=== PATIENT | female | born 1955 | race Two or more races ===

== ENCOUNTER 2021-08-25 07:28 | Inpatient (IN) | payer MEDICARE, OTHER ==
[~2021-08-25] VITALS: Ht 167.6 cm; Wt 72.1 kg
--- NOTE | 2021-08-25 07:30 | NUR ---
TO ER BED 11, BIBRA 77 FROM HOME C/O MORE ALTERED AND WEAK THAN USUAL. PER EMS UNKNOWN LKW. [id number], SLEEPY, BREATHING EVEN AND NON LABORED, CONNECTED TO MONITOR
[2021-08-25] MEDS ORDERED: SUMA50TA17 PO (07:53)
[2021-08-25] MEDS ORDERED: CYCL10TA9 PO (07:53)
[2021-08-25] MEDS ORDERED: DIPH-1062 PO (07:53)
[2021-08-25] MEDS ORDERED: ESCI10TA PO (07:53)
[2021-08-25] MEDS ORDERED: ZOLP10TA2 PO (07:53)
[2021-08-25] MEDS ORDERED: HYDR-3980 PO (07:53)
[2021-08-25] MEDS ORDERED: SENN-261 PO (07:53)
[2021-08-25] MEDS ORDERED: NAPR-1009 PO (07:53)
[2021-08-25] MEDS ORDERED: DOCU250C14 PO (07:53)
[2021-08-25] MEDS ORDERED: ELVI1TAB3 PO (07:53)
--- NOTE | 2021-08-25 07:54 | NUR ---
COVID SWAB DONE AND SENT TO LAB
--- NOTE | 2021-08-25 07:55 | NUR ---
URINE COLLECTED AND SENT TO LAB
--- NOTE | 2021-08-25 08:05 | NUR ---
AIRCRAFT CLEANING SUPERVISOR AT BED SIDE
[2021-08-25 08:08] LABS: BASOPHILS % (AUTO) 0.2 % (0.0-2.0); EOSINOPHILS % (AUTO) 0.1 % (0.0-6.0); HEMATOCRIT 40 % (33-45); LYMPHOCYTES # (AUTO) 2.5 K/uL (0.8-4.8); LYMPHOCYTES % (AUTO) 15.3 % (20.0-44.0); MEAN CORPUSCULAR HGB CONC 33 g/dl (31.0-36.0); MEAN CORPUSCULAR VOLUME 91 fL (82-100); MONOCYTES # (AUTO) 0.8 K/uL (0.1-1.30); MONOCYTES % (AUTO) 4.9 % (2.0-12.0); NEUTROPHILS # (AUTO) 12.8 K/uL (1.8-8.9); NEUTROPHILS % (AUTO) 79.5 % (43.0-81.0); PLATELET COUNT (AUTO) 196 K/uL (150-450); RED BLOOD CELL COUNT(AUTO) 4.37 MIL/uL (4.0-5.2); WHITE BLOOD COUNT (AUTO) 16.1 K/uL (4.3-11.0)
[2021-08-25] MEDS ORDERED: GABA-532 PO (08:08)
[2021-08-25] MEDS ORDERED: METH-647 PO (08:08)
[2021-08-25] MEDS ORDERED: ERGO500093 PO (08:08)
--- NOTE | 2021-08-25 08:08 | NUR ---
MOVE SHEET SUBMITTED AND CALLED FOR TELE BED.
[2021-08-25 08:17] LABS: BILIRUBIN,URINE NEGATIVE (NEGATIVE); COLOR,URINE YELLOW (YELLOW); LEUKOCYTE ESTERASE ,URINE NEGATIVE (NEGATIVE); NITRITE, URINE NEGATIVE (NEGATIVE); PROTEIN,URINE NEGATIVE (NEGATIVE); UGLUCOSE NEGATIVE (NEGATIVE); UROBILINOGEN,URINE 0.2 EU/dL (0.2)
[2021-08-25 08:24] LABS: SERUM AMMONIA 24 umol/L (11-32)
[2021-08-25 08:25] LABS: CARBON DIOXIDE 24 mmol/L (21-32); CHLORIDE 106 mmol/L (98-107); CREATININE 0.7 mg/dL (0.6-1.3); GLUCOSE 147 mg/dL (74-106); POTASSIUM 3.3 mmol/L (3.5-5.1); SODIUM SERUM 139 mmol/L (136-145); UREA NITROGEN, BLOOD 24 mg/dL (7-18)
[2021-08-25 08:31] LABS: ALANINE AMINOTRANSFERASE 38 U/L (12-78); ALBUMIN 3.1 g/dL (3.4-5.0); ALKALINE PHOSPHATASE 86 U/L (46-116); ASPARTATE AMINOTRANSFERASE 65 U/L (15-37); BILIRUBIN,DIRECT 0.1 mg/dL (0.0-0.2); BILIRUBIN,TOTAL 0.3 mg/dL (0.2-1.0); TOTAL PROTEIN, SERUM 7.5 g/dL (6.4-8.2)
[2021-08-25 08:45] LABS: ACETAMINOPHEN 0 ug/ml (10-30); ALCOHOL, BLOOD < 3 mg/dL (0-0)
[2021-08-25 08:58] LABS: THYROID STIMULATING HORMONE 1.422 uIU/mL (0.358-3.74)
[2021-08-25 09:00] LABS: BACTERIA,URINE Rare /HPF (None Seen); RBC,URINE 0-2 /HPF (0-2); SQUAMOUS EPITHELIAL CELL,UR Few /HPF (None Seen); WBC,URINE 0-2 /HPF (0-3)
[2021-08-25] MEDS ORDERED: IV NS 0.9% 1,000 ML BAG IV ONE (09:30)
[2021-08-25] MEDS ORDERED: MAG HYDROX/AL HYDROX/SIMETH 30 ML UDC PO PRN (11:30)
[2021-08-25] MEDS ORDERED: SENNOSIDES 8.6 MG TABLET PO PRN (11:30)
[2021-08-25] MEDS ORDERED: Z GUARD REMEDY 4 OZ OINT TP PRN (11:30)
[2021-08-25] MEDS ORDERED: DOCUSATE SODIUM 250 MG CAPSULE PO PRN (11:30)
[2021-08-25] MEDS ORDERED: MAGNESIUM HYDROXIDE 30 ML UDC PO PRN (11:30)
[2021-08-25] MEDS ORDERED: IV NS 0.9% 1,000 ML IV PRN (11:30)
[2021-08-25] MEDS ORDERED: ACETAMINOPHEN 325 MG TABLET PO PRN (11:30)
[2021-08-25] MEDS ORDERED: ONDANSETRON HCL/PF 4 MG/2 ML VIAL IVP PRN (11:30)
--- NOTE | 2021-08-25 12:48 | NUR ---
BED 325-2
--- NOTE | 2021-08-25 12:54 | NUR ---
report given to bob lao for silvia
[2021-08-25] MEDS ORDERED: SUMATRIPTAN SUCCINATE 25 MG TABLET PO PRN (13:00)
[2021-08-25] MEDS: ESCITALOPRAM OXALATE (10 MG) 10 MG TABLET PO SCH ×2 (13:00→17:11)
--- NOTE | 2021-08-25 13:19 | NUR ---
TRANSFERRED TO BED 325 IN STABLE CONDITION
--- NOTE | 2021-08-25 13:25 | NUR ---
RN NOTES PATIENT ARRIVED TO UNIT AT ROOM 325-2, ACCOMPANIED BY 2 ER NURSES. PATIENT IS DOZING INTERMITTENTLY, ABLE TO BE AWAKENED, A/O X1, VERBALLY RESPONSIVE BUT NOTED W/ SOME DIFFICULTY MAKING HERSELF KNOWN. UNDERSTANDS EGYPTIAN AND [place]ELANDIC. TRANSFERRED TO BED AND ATTACHED TO CHANNEL DIRECTOR.
--- NOTE | 2021-08-25 15:28 | NUR ---
RN NOTES LAC #18 G STARTED.
[2021-08-25] MEDS: NAPROXEN 500 MG TABLET PO SCH (16:16)
--- NOTE | 2021-08-25 16:16 | NUR ---
RN NOTES PATIENT MORE ALERT AND RESPONSIVE AT THIS TIME; ABLE TO VERBALIZE THAT SHE HAS HIV AND IS TAKING MEDICATIONS FOR IT. ALSO MENTIONED TO CONTACT HER BOYFRIEND, KAMALA; WILL FIND INFO AND INFORM RP APPLICABLE. Addendum: 08/25/21 at 1636 by JOSELO OHARA RN ROMINA ORDOÑEZ ([phone])
--- NOTE | 2021-08-25 16:52 | NUR ---
RN NOTES DR. JAMES MADE AWARE THAT PATIENT IS MORE ALERT AND RESPONSIVE, ABLE TO ANSWER SOME QUESTIONS, AND FOLLOW SIMPLE COMMANDS. ABLE TO PASS NURSING SWALLOW SCREEN, NO ASPIRATION NOTED. AGREED W/ RECOMMENDATION TO ADVANCE DIET TO CLEAR LIQUIDS AT THIS TIME. WILL CONTINUE TO MONITOR.
--- NOTE | 2021-08-25 19:30 | NUR ---
RN NOTES PATIENT'S PERSONAL CELLPHONE AT BEDSIDE W/ PATIENT. BOYFRIENDROMINA, AT BEDSIDE TO VISIT PATIENT. MADE AWARE OF PLAN OF CARE.
--- NOTE | 2021-08-25 19:40 | NUR ---
CAR PRE COOLER OPENING NOTE RECEIVED PT AWAKE IN BED. A/O X1-2. BOYFRIEND ROMINA AT BEDSIDE. PT STABLE ON ROOM AIR. NO SOB OR S/S OF RESPIRATORY DISTRESS. BREATHING EVEN AND UNLABORED. ON EXTERNAL COMMISSIONER OF INTERNAL REVENUE READING ST @ 106 BPM. IV ACCESS RAC 20 GAUGE AND LAC 18 GAUGE, INTACT AND PATENT, RUNNING NS @ 125 ML/HR. SAFETY PRECAUTIONS IN PLACE. BED IN LOWEST LOCKED POSITION, HOB ELEVATED, SIDE RAILS UP X2, AND CALL LIGHT AND TABLE WITHIN REACH. ALL NEEDS MET AT THIS TIME.
[2021-08-25 20:00] VITALS: BP 112/56
[2021-08-26] VITALS: BP 120/72
[2021-08-26 04:00] VITALS: BP 133/79
[2021-08-26 06:23] LABS: BASOPHILS % (AUTO) 0.4 % (0.0-2.0); EOSINOPHILS % (AUTO) 1.1 % (0.0-6.0); HEMATOCRIT 38 % (33-45); HEMOGLOBIN 12.6 g/dL (11.5-14.8); LYMPHOCYTES # (AUTO) 2.2 K/uL (0.8-4.8); LYMPHOCYTES % (AUTO) 22.8 % (20.0-44.0); MEAN CORPUSCULAR HGB CONC 33 g/dl (31.0-36.0); MEAN CORPUSCULAR VOLUME 90 fL (82-100); MONOCYTES # (AUTO) 0.5 K/uL (0.1-1.30); MONOCYTES % (AUTO) 5.3 % (2.0-12.0); NEUTROPHILS # (AUTO) 6.9 K/uL (1.8-8.9); NEUTROPHILS % (AUTO) 70.4 % (43.0-81.0); PLATELET COUNT (AUTO) 179 K/uL (150-450); WHITE BLOOD COUNT (AUTO) 9.9 K/uL (4.3-11.0)
--- NOTE | 2021-08-26 06:37 | NUR ---
PULMONARY FELLOW CLOSING NOTE PT IN BED, EYES CLOSED, EASILY AROUSABLE. A/O X1-2. PT STABLE ON ROOM AIR. NO SOB OR S/S OF RESPIRATORY DISTRESS. BREATHING EVEN AND UNLABORED. ON EXTERNAL CODING ADVISOR READING SR @ 86 BPM. IV ACCESS RAC 20 GAUGE AND LAC 18 GAUGE, INTACT AND PATENT, RUNNING NS @ 125 ML/HR. SAFETY PRECAUTIONS IN PLACE AT ALL TIMES. BED IN LOWEST LOCKED POSITION, HOB ELEVATED, SIDE RAILS UP X2, AND CALL LIGHT AND TABLE WITHIN REACH. ALL NEEDS MET AT THIS TIME AND WILL ENDORSE TO ONCOMING NURSE FOR OSMANY.
[2021-08-26 07:03] LABS: CALCIUM, SERUM 8.9 mg/dL (8.5-10.1); CREATININE 0.6 mg/dL (0.6-1.3); MAGNESIUM 2.1 mg/dL (1.8-2.4); PHOSPHORUS 3.6 mg/dL (2.5-4.9); POTASSIUM 3.2 mmol/L (3.5-5.1)
--- NOTE | 2021-08-26 07:15 | NUR ---
RN OPENING NOTES RECEIVED PATIENT IN BED, AWAKE, VERBALLY RESPONSIVE. NO SIGNS OF ACUTE DISTRESS NOTED. STABLE ON ROOM AIR, NO SOB NOTED, BREATHING EVEN AND UNLABORED. NOTED WITH IV ACCESS ON RAC #20G AND LEFT AC #20 G WITH IVF OF NS @125ML/HR INFUSING WELL. SAFETY MEASURE IN PLACE. BED IN LOWEST AND LOCKED POSITION, SR UP, CALL LIGHT PLACED WITHIN EASY REACH, WILL CONTINUE TO MONITOR PATIENT.
[2021-08-26 08:00] VITALS: BP 126/80
[2021-08-26] MEDS ORDERED: POTASSIUM CL. PREMIX PERIPHER. 50 ML IV SCH (08:00)
[2021-08-26] MEDS: NAPROXEN 500 MG TABLET PO SCH ×2 (08:29→17:19)
[2021-08-26] MEDS: ESCITALOPRAM OXALATE (10 MG) 10 MG TABLET PO SCH ×3 (08:30→17:20)
[2021-08-26] MEDS: Potassium Chloride 10 MEQ, LIDOCAINE HCL/PF 1% 1 ML in IV D5W 50 ML IV SCH ×4 (09:51→13:09)
[2021-08-26 16:00] VITALS: BP 117/71
--- NOTE | 2021-08-26 18:43 | NUR ---
RN CLOSING NOTES PATIENT IN BED, AWAKE, VERBALLY RESPONSIVE, A/O X4. NO SIGNS OF ACUTE DISTRESS NOTED. STABLE ON ROOM AIR, NO SOB NOTED, BREATHING EVEN AND UNLABORED. NOTED WITH IV ACCESS ON RAC #20G AND LEFT AC #20 G WITH IVF OF NS @125ML/HR INFUSING WELL. SAFETY MEASURE IN PLACE. BED IN LOWEST AND LOCKED POSITION, SR UP, CALL LIGHT PLACED WITHIN EASY REACH, WILL ENDORSE TO NEXT SHIFT FOR OSMANY.
--- NOTE | 2021-08-26 19:30 | NUR ---
MS RN OPENING NOTE RECEIVED PT AWAKE IN BED. A/O X4. BOYFRIEND ROMINA AT BEDSIDE. PT STABLE ON ROOM AIR. NO SOB OR S/S OF RESPIRATORY DISTRESS. BREATHING EVEN AND UNLABORED. IV ACCESS RAC 20 GAUGE AND LAC 18 GAUGE, INTACT AND PATENT, RUNNING NS @ 125 ML/HR. SAFETY PRECAUTIONS IN PLACE. BED IN LOWEST LOCKED POSITION, HOB ELEVATED, SIDE RAILS UP X2, AND CALL LIGHT AND TABLE WITHIN REACH. ALL NEEDS MET AT THIS TIME.
[2021-08-26 20:07] VITALS: BP 118/71
[2021-08-27 04:00] VITALS: BP 132/69
--- NOTE | 2021-08-27 06:43 | NUR ---
MS RN CLOSING NOTE PT AWAKE IN BED. A/O X4. PT STABLE ON ROOM AIR. NO SOB OR S/S OF RESPIRATORY DISTRESS. BREATHING EVEN AND UNLABORED. IV ACCESS RAC 20 GAUGE AND LAC 18 GAUGE, INTACT AND PATENT, RUNNING NS @ 125 ML/HR. SAFETY PRECAUTIONS IN PLACE AT AL TIMES. BED IN LOWEST LOCKED POSITION, HOB ELEVATED, SIDE RAILS UP X2, AND CALL LIGHT AND TABLE WITHIN REACH. ALL NEEDS MET AT THIS TIME AND WILL ENDORSE TO ONCOMING NURSE FOR OSMANY.
[2021-08-27 07:05] LABS: CALCIUM, SERUM 8.9 mg/dL (8.5-10.1); CREATININE 0.5 mg/dL (0.6-1.3); POTASSIUM 3.5 mmol/L (3.5-5.1)
[2021-08-27 07:09] LABS: BASOPHILS % (AUTO) 0.3 % (0.0-2.0); EOSINOPHILS % (AUTO) 2.6 % (0.0-6.0); HEMATOCRIT 38 % (33-45); HEMOGLOBIN 12.5 g/dL (11.5-14.8); LYMPHOCYTES # (AUTO) 1.9 K/uL (0.8-4.8); LYMPHOCYTES % (AUTO) 23.7 % (20.0-44.0); MEAN CORPUSCULAR HGB CONC 33 g/dl (31.0-36.0); MEAN CORPUSCULAR VOLUME 89 fL (82-100); MONOCYTES # (AUTO) 0.5 K/uL (0.1-1.30); MONOCYTES % (AUTO) 6.1 % (2.0-12.0); NEUTROPHILS # (AUTO) 5.3 K/uL (1.8-8.9); NEUTROPHILS % (AUTO) 67.3 % (43.0-81.0); PLATELET COUNT (AUTO) 188 K/uL (150-450); RED BLOOD CELL COUNT(AUTO) 4.22 MIL/uL (4.0-5.2); WHITE BLOOD COUNT (AUTO) 7.9 K/uL (4.3-11.0)
--- NOTE | 2021-08-27 07:35 | NUR ---
ms rn received on bed, awake,alert,oriented x4,not in any form of distress, respirations even and unlabored,no sob noted, lungs are clear, abdomen soft,positive bowel sounds,denies pain at this time,all needs attended.
[2021-08-27] MEDS: ESCITALOPRAM OXALATE (10 MG) 10 MG TABLET PO SCH (08:15)
[2021-08-27] MEDS: NAPROXEN 500 MG TABLET PO SCH ×2 (08:15→16:40)
--- NOTE | 2021-08-27 08:45 | NUR ---
ms lao breakfast served,due meds given,tolerated well.
--- NOTE | 2021-08-27 12:00 | NUR ---
ms rn was seen by dr. noel w/ order to go home, will text apoorva.
--- NOTE | 2021-08-27 16:30 | NUR ---
ms shilo Golden put d/c order, d/c instructions given and understood,was pickle maker by ,all needs attended.
[2021-08-27] MEDS ORDERED: ESCI10TA PO (16:40)
[2021-08-28] MEDS ORDERED: ESCITALOPRAM OXALATE (10 MG) 10 MG TABLET PO SCH (09:00)
[2021-08-28] MEDS ORDERED: ERGOCALCIFEROL (VITAMIN D 2) 50,000 UNIT CAPSULE PO SCH (13:00)
== END 2021-08-27 17:44 | disposition home or self-care (01) | DRG 917 ==
LOC: ER 07:32 → TELE 12:51 → MED 08-26 11:14
PROVIDERS: ADMIT Family Medicine; ATTEND Family Medicine
DX: T42.4X1A Poisoning by benzodiazepines, accidental (unintentional), initial encounter (principal); G92.8 Other toxic encephalopathy; N17.0 Acute kidney failure with tubular necrosis; M62.82 Rhabdomyolysis; R74.01 Elevation of levels of liver transaminase levels; D72.829 Elevated white blood cell count, unspecified; E87.6 Hypokalemia; F32.A Depression, unspecified; R73.9 Hyperglycemia, unspecified; G89.29 Other chronic pain; E55.9 Vitamin D deficiency, unspecified; G43.909 Migraine, unspecified, not intractable, without status migrainosus; K59.00 Constipation, unspecified; T50.901A Poisoning by unspecified drugs, medicaments and biological substances, accidental (unintentional), initial encounter; Y92.009 Unspecified place in unspecified non-institutional (private) residence as the place of occurrence of the external cause; Z79.891 Long term (current) use of opiate analgesic; F41.1 Generalized anxiety disorder; Z20.822 Contact with and (suspected) exposure to COVID-19
CPT/HCPCS: 36415; 70450-TC; 71045-TC; 80048-TC; 80076-TC; 81001; 82140-TC; 82550-TC; 82553; 83605-TC; 83735-TC; 84100-TC; 84443-TC; 84484-TC; 85025-TC; 87040-TC; 87081-TC; 87086-TC; C9803; G0378; G0480; J3480; J3490; J7030; J7060

== ENCOUNTER 2022-05-09 18:30 | Emergency (ER) | payer MEDICARE, OTHER ==
[~2022-05-09] VITALS: Ht 154.9 cm; Wt 68.0 kg
[~2022-05-09 18:30] MED LIST: CYCL10TA9 PO; DIPH-1062 PO; DOCU250C14 PO; ELVI1TAB3 PO; ERGO500093 PO; ESCI10TA PO; GABA-532 PO; HYDR-3980 PO; METH-647 PO; NAPR-1009 PO; SENN-261 PO; SUMA50TA17 PO; ZOLP10TA2 PO
--- NOTE | 2022-05-09 18:42 | NUR ---
TO ER BED 3,MONITORED,EKG,READY FOR MD GAMBLE
[2022-05-09 19:52] LABS: BASOPHILS % (AUTO) 0.5 % (0.0-2.0); EOSINOPHILS % (AUTO) 2.5 % (0.0-6.0); HEMATOCRIT 40 % (33-45); HEMOGLOBIN 13.3 g/dL (11.5-14.8); LYMPHOCYTES # (AUTO) 3.2 K/uL (0.8-4.8); LYMPHOCYTES % (AUTO) 34.7 % (20.0-44.0); MEAN CORPUSCULAR HGB CONC 33 g/dl (31.0-36.0); MEAN CORPUSCULAR VOLUME 91 fL (82-100); MONOCYTES # (AUTO) 0.6 K/uL (0.1-1.30); MONOCYTES % (AUTO) 6.4 % (2.0-12.0); NEUTROPHILS # (AUTO) 5.1 K/uL (1.8-8.9); NEUTROPHILS % (AUTO) 55.9 % (43.0-81.0); PLATELET COUNT (AUTO) 237 K/uL (150-450); RED BLOOD CELL COUNT(AUTO) 4.43 MIL/uL (4.0-5.2); WHITE BLOOD COUNT (AUTO) 9.1 K/uL (4.3-11.0)
[2022-05-09 19:53] LABS: CALCIUM, SERUM 8.3 mg/dL (8.5-10.1); CARBON DIOXIDE 28 mmol/L (21-32); CHLORIDE 103 mmol/L (98-107); CREATININE 1.3 mg/dL (0.6-1.3); GLUCOSE 140 mg/dL (74-106); POTASSIUM 3.7 mmol/L (3.5-5.1); SODIUM SERUM 141 mmol/L (136-145); UREA NITROGEN, BLOOD 14 mg/dL (7-18)
[2022-05-09 19:59] LABS: ALANINE AMINOTRANSFERASE 23 U/L (12-78); ALBUMIN 3.8 g/dL (3.4-5.0); ALKALINE PHOSPHATASE 106 U/L (46-116); ASPARTATE AMINOTRANSFERASE 20 U/L (15-37); BILIRUBIN,DIRECT 0.1 mg/dL (0.0-0.2); BILIRUBIN,TOTAL 0.2 mg/dL (0.2-1.0); TOTAL PROTEIN, SERUM 7.4 g/dL (6.4-8.2)
[2022-05-09] MEDS ORDERED: KETOROLAC TROMETHAMINE INJ 30 MG/ML VIAL IV ONE (20:00)
[2022-05-09] MEDS ORDERED: KETOROLAC TROMETHAMINE INJ 30 MG/ML VIAL ONE (20:24)
[2022-05-09] MEDS ORDERED: CYCLOBENZAPRINE 10 MG TABLET PO ONE (20:30)
--- NOTE | 2022-05-09 20:44 | NUR ---
IV removed. Catheter intact and site benign. Pressure and 4x4 applied to site. No bleeding noted.Patient discharged to home in stable condition. Written and verbal after care instructions given. Patient verbalizes understanding of instruction.
[2022-05-09 20:46] VITALS: BP 112/60
== END 2022-05-09 20:47 | disposition home or self-care (01) ==
LOC: ER 18:36
DX: R07.89 Other chest pain (principal); Z60.2 Problems related to living alone; Z79.899 Other long term (current) drug therapy
CPT/HCPCS: 99285; 96374; 71045; 93005; 85025; 80048; 80076; 85378; 36415; 84484; J1885

== ENCOUNTER 2023-04-21 11:17 | Emergency (ER) | payer MEDICARE, MEDICAID ==
[~2023-04-21] VITALS: Ht 154.9 cm; Wt 62.6 kg
[2023-04-21 11:43] VITALS: TEMP 98.6
[2023-04-21 12:01] VITALS: BP 129/65; O2SAT 100
== END 2023-04-21 12:03 | disposition left against medical advice (07) ==
LOC: ER 11:18
DX: M54.50 Low back pain, unspecified (principal); M25.562 Pain in left knee; Z60.2 Problems related to living alone; W01.0XXA Fall on same level from slipping, tripping and stumbling without subsequent striking against object, initial encounter; Y93.89 Activity, other specified; Y92.89 Other specified places as the place of occurrence of the external cause; Y99.8 Other external cause status

== ENCOUNTER 2023-08-14 10:03 | Emergency (ER) | payer BC, MEDICAID ==
[~2023-08-14] VITALS: Ht 154.9 cm; Wt 62.6 kg
[2023-08-14 10:27] VITALS: TEMP 98.6
[2023-08-14] MEDS ORDERED: ONDANSETRON HCL/PF 4 MG/2 ML VIAL ONE (11:07)
[2023-08-14] MEDS ORDERED: KETOROLAC TROMETHAMINE 15 MG/ML VIAL ONE (11:07)
[2023-08-14] MEDS ORDERED: ACETAMINOPHEN ES 500 MG TABLET ONE (11:07)
[2023-08-14] MEDS: IV NS 0.9% 1,000 ML BAG IV ONE (11:25)
[2023-08-14] MEDS: ONDANSETRON HCL/PF 4 MG/2 ML VIAL IVP ONE (11:26)
[2023-08-14] MEDS: KETOROLAC TROMETHAMINE 15 MG/ML VIAL IV ONE (11:27)
[2023-08-14] MEDS: ACETAMINOPHEN ES 500 MG TABLET PO ONE (11:27)
[2023-08-14 11:41] LABS: BASOPHILS % (AUTO) 0.3 % (0.0-2.0); EOSINOPHILS # (AUTO) 0.1 K/uL (0.0-0.7); EOSINOPHILS % (AUTO) 0.7 % (0.0-6.0); HEMATOCRIT 41 % (33-45); HEMOGLOBIN 13.8 g/dL (11.5-14.8); LYMPHOCYTES # (AUTO) 2.3 K/uL (0.8-4.8); LYMPHOCYTES % (AUTO) 20.3 % (20.0-44.0); MEAN CORPUSCULAR HEMOGLOBIN 29 PG (26.0-33.0); MEAN CORPUSCULAR HGB CONC 33 g/dl (31.0-36.0); MEAN CORPUSCULAR VOLUME 87 fL (82-100); MONOCYTES # (AUTO) 0.6 K/uL (0.1-1.30); MONOCYTES % (AUTO) 5.3 % (2.0-12.0); NEUTROPHILS # (AUTO) 8.4 K/uL (1.8-8.9); NEUTROPHILS % (AUTO) 73.4 % (43.0-81.0); PLATELET COUNT (AUTO) 229 K/uL (150-450); RED BLOOD CELL COUNT(AUTO) 4.72 MIL/uL (4.0-5.2); RED CELL DISTRIBUTION WIDTH 15.7 % (11.5-15.0); WHITE BLOOD COUNT (AUTO) 11.5 K/uL (4.3-11.0)
[2023-08-14 11:53] LABS: CALCIUM, SERUM 8.6 mg/dL (8.5-10.1); CREATININE 0.8 mg/dL (0.6-1.3); POTASSIUM 3.6 mmol/L (3.5-5.1)
[2023-08-14 12:07] LABS: ALBUMIN 3.3 g/dL (3.4-5.0); BILIRUBIN,DIRECT 0.1 mg/dL (0.0-0.2); BILIRUBIN,TOTAL 0.4 mg/dL (0.2-1.0); TOTAL PROTEIN, SERUM 8.3 g/dL (6.4-8.2)
[2023-08-14] MEDS ORDERED: AZIT250T13 PO (12:28)
[2023-08-14] MEDS ORDERED: POLY17PO4 PO (12:28)
[2023-08-14] MEDS ORDERED: AMOX-430 PO (12:28)
[2023-08-14 12:48] VITALS: BP 99/68; O2SAT 99
== END 2023-08-14 12:49 | disposition home or self-care (01) ==
LOC: ER 10:03
DX: K59.00 Constipation, unspecified (principal); J18.1 Lobar pneumonia, unspecified organism; R10.9 Unspecified abdominal pain; R11.2 Nausea with vomiting, unspecified; R20.2 Paresthesia of skin; F41.9 Anxiety disorder, unspecified; Z88.8 Allergy status to other drugs, medicaments and biological substances; Z60.2 Problems related to living alone; Z79.899 Other long term (current) drug therapy
CPT/HCPCS: 99285; 74176; 96374; 71045; 96361; 96375; 93005; 85025; 80048; 83690; 80076; 36415; J2405; J7030; J1885

== ENCOUNTER 2023-12-10 00:27 | Emergency (ER) | payer BC, MEDICAID ==
[~2023-12-10] VITALS: Ht 154.9 cm; Wt 67.1 kg
[~2023-12-10 00:27] MED LIST changes: +AMOX-430 PO; +AZIT250T13 PO; +POLY17PO4 PO
[2023-12-10] MEDS ORDERED: ONDANSETRON HCL/PF 4 MG/2 ML VIAL ONE (01:43)
[2023-12-10] MEDS: ONDANSETRON HCL/PF 4 MG/2 ML VIAL IVP ONE (01:54)
[2023-12-10] MEDS: IV NS 0.9% 1,000 ML BAG IV ONE (01:54)
[2023-12-10 01:59] LABS: BASOPHILS % (AUTO) 0.2 % (0.0-2.0); EOSINOPHILS # (AUTO) 0.1 K/uL (0.0-0.7); EOSINOPHILS % (AUTO) 0.7 % (0.0-6.0); HEMATOCRIT 39 % (33-45); HEMOGLOBIN 13.2 g/dL (11.5-14.8); LYMPHOCYTES # (AUTO) 1.9 K/uL (0.8-4.8); LYMPHOCYTES % (AUTO) 21.6 % (20.0-44.0); MEAN CORPUSCULAR HEMOGLOBIN 30 PG (26.0-33.0); MEAN CORPUSCULAR HGB CONC 34 g/dl (31.0-36.0); MEAN CORPUSCULAR VOLUME 89 fL (82-100); MONOCYTES # (AUTO) 0.6 K/uL (0.1-1.30); MONOCYTES % (AUTO) 7.1 % (2.0-12.0); NEUTROPHILS # (AUTO) 6.1 K/uL (1.8-8.9); NEUTROPHILS % (AUTO) 70.4 % (43.0-81.0); PLATELET COUNT (AUTO) 231 K/uL (150-450); RED BLOOD CELL COUNT(AUTO) 4.41 MIL/uL (4.0-5.2); RED CELL DISTRIBUTION WIDTH 14.4 % (11.5-15.0); WHITE BLOOD COUNT (AUTO) 8.7 K/uL (4.3-11.0)
[2023-12-10 02:11] LABS: CALCIUM, SERUM 8.5 mg/dL (8.5-10.1); CREATININE 1.1 mg/dL (0.6-1.3); POTASSIUM 3.4 mmol/L (3.5-5.1)
[2023-12-10] MEDS: KETOROLAC TROMETHAMINE INJ 30 MG/ML VIAL IV ONE (02:14)
[2023-12-10 02:16] LABS: ALBUMIN 3.8 g/dL (3.4-5.0); BILIRUBIN,DIRECT 0.1 mg/dL (0.0-0.2); BILIRUBIN,TOTAL 1.5 mg/dL (0.2-1.0); TOTAL PROTEIN, SERUM 7.8 g/dL (6.4-8.2)
[2023-12-10 04:13] VITALS: BP 136/79; TEMP 98.3; O2SAT 100
== END 2023-12-10 04:14 | disposition home or self-care (01) ==
LOC: ER 00:29
DX: R10.84 Generalized abdominal pain (principal); R50.9 Fever, unspecified; R11.2 Nausea with vomiting, unspecified; G89.29 Other chronic pain; F41.9 Anxiety disorder, unspecified; Z91.041 Radiographic dye allergy status; Z91.040 Latex allergy status; Z60.2 Problems related to living alone
CPT/HCPCS: 99285; 74176; 96374; 96361; 96375; 85025; 80048; 83690; 80076; 36415; J1885; J2405; J7030

== ENCOUNTER 2024-01-06 05:52 | Emergency (ER) | payer BC, MEDICAID ==
[~2024-01-06] VITALS: Ht 154.9 cm; Wt 65.8 kg
--- NOTE | 2024-01-06 06:02 | NUR ---
JESSIE 878 FROM HOME C/O EPIGASTRIC PAIN X2 DAYS, TOOK TYLENOL 2HRS AGO
[2024-01-06] MEDS ORDERED: MORPHINE SULFATE INJ 4 MG/ML DISP.SYRIN ONE (06:15)
[2024-01-06] MEDS ORDERED: ONDANSETRON HCL/PF 4 MG/2 ML VIAL ONE (06:15)
--- NOTE | 2024-01-06 06:28 | NUR ---
Established IV line on left AC G20, blood specimen collected sent to lab
[2024-01-06] MEDS: ONDANSETRON HCL/PF 4 MG/2 ML VIAL IVP ONE (06:29)
[2024-01-06] MEDS: MORPHINE SULFATE INJ 2 MG/ML DISP.SYRIN IV ONE ×3 (06:29→11:59)
[2024-01-06] MEDS: IV NS 0.9% 500 ML BAG IV ONE (06:31)
[2024-01-06 06:45] LABS: BASOPHILS % (AUTO) 0.3 % (0.0-2.0); EOSINOPHILS % (AUTO) 0.6 % (0.0-6.0); HEMATOCRIT 35 % (33-45); HEMOGLOBIN 11.7 g/dL (11.5-14.8); MEAN CORPUSCULAR HEMOGLOBIN 29 PG (26.0-33.0); MEAN CORPUSCULAR HGB CONC 34 g/dl (31.0-36.0); MEAN CORPUSCULAR VOLUME 86 fL (82-100); MONOCYTES # (AUTO) 0.6 K/uL (0.1-1.30); MONOCYTES % (AUTO) 7.7 % (2.0-12.0); NEUTROPHILS # (AUTO) 6.5 K/uL (1.8-8.9); NEUTROPHILS % (AUTO) 79.4 % (43.0-81.0); PLATELET COUNT (AUTO) 317 K/uL (150-450); RED BLOOD CELL COUNT(AUTO) 4.03 MIL/uL (4.0-5.2); RED CELL DISTRIBUTION WIDTH 14.8 % (11.5-15.0); WHITE BLOOD COUNT (AUTO) 8.2 K/uL (4.3-11.0)
[2024-01-06 06:51] LABS: CALCIUM, SERUM 8.4 mg/dL (8.5-10.1); CREATININE 0.9 mg/dL (0.6-1.3); POTASSIUM 2.9 mmol/L (3.5-5.1)
[2024-01-06 06:57] LABS: ALBUMIN 2.5 g/dL (3.4-5.0); BILIRUBIN,DIRECT 0.1 mg/dL (0.0-0.2); BILIRUBIN,TOTAL 0.2 mg/dL (0.2-1.0); TOTAL PROTEIN, SERUM 6.4 g/dL (6.4-8.2)
--- NOTE | 2024-01-06 07:29 | NUR ---
Urine specimen collected sent to lab
[2024-01-06] MEDS: POTASSIUM CL. PREMIX PERIPHER. 50 ML IV SCH (07:45)
[2024-01-06 07:47] LABS: APPEARANCE,URINE CLEAR (CLEAR); BILIRUBIN,URINE 1+ (NEGATIVE); BLOOD, URINE 1+ Ery/uL (NEGATIVE); COLOR,URINE YELLOW (YELLOW); KETONES,URINE 1+ mg/dL (NEGATIVE); LEUKOCYTE ESTERASE ,URINE NEGATIVE (NEGATIVE); NITRITE, URINE NEGATIVE (NEGATIVE); PROTEIN,URINE NEGATIVE (NEGATIVE); UGLUCOSE NEGATIVE (NEGATIVE)
--- NOTE | 2024-01-06 07:51 | NUR ---
move sheet submitted admit: abd pain, stable med surg
[2024-01-06] MEDS ORDERED: POTASSIUM CL. PREMIX PERIPHER. 50 ML ONE (07:54)
[2024-01-06] MEDS ORDERED: POTASSIUM CL. PREMIX PERIPHER. 150 ML ONE (08:09)
[2024-01-06 08:21] LABS: ADD URINE CULTURE NO; BACTERIA,URINE Rare /HPF (None Seen); SQUAMOUS EPITHELIAL CELL,UR Moderate /HPF (None Seen); WBC,URINE 0-2 /HPF (0-3)
--- NOTE | 2024-01-06 08:28 | NUR ---
Kaia from [facility] [phone]
[2024-01-06] MEDS ORDERED: MORPHINE SULFATE INJ 2 MG/ML DISP.SYRIN ONE ×2 (08:38→11:57)
--- NOTE | 2024-01-06 09:42 | NUR ---
Carlos Albrecht [phone]
--- NOTE | 2024-01-06 11:46 | NUR ---
Patient Tranfers to outside Facility Physician:Dr. cosme Location: [facility] room 900B report # [phone]
--- NOTE | 2024-01-06 12:04 | NUR ---
transport ETA 12:45 [facility]
[2024-01-06 12:15] VITALS: BP 118/77; TEMP 98; O2SAT 100
--- NOTE | 2024-01-06 12:16 | NUR ---
report given to Alfreda SHELTON to continue plan of care
--- NOTE | 2024-01-06 13:07 | NUR ---
patient picked up by private ambulance in no distress accompanied by 2 emt going to [facility].
== END 2024-01-06 13:07 | disposition short-term general hospital (02) ==
LOC: ER 05:53
DX: R10.13 Epigastric pain (principal); E87.6 Hypokalemia; Z79.899 Other long term (current) drug therapy; Z79.891 Long term (current) use of opiate analgesic; Z98.890 Other specified postprocedural states; Z60.2 Problems related to living alone; Z91.040 Latex allergy status
CPT/HCPCS: 99285; 96365; 96366; 96375; 96376; 85025; 80048; 83690; 80076; 81001; 36415; J2270 ×3; J2405; J7030; J7040 ×2; J3480 ×2; A4223

== ENCOUNTER 2024-07-31 12:44 | Emergency (ER) | payer BC, MEDICAID ==
[~2024-07-31] VITALS: Ht 154.9 cm; Wt 63.5 kg
[2024-07-31] MEDS ORDERED: IV NS 0.9% 1,000 ML BAG IV ONE (13:00)
[2024-07-31] MEDS ORDERED: ACETAMINOPHEN ES 500 MG TABLET ONE (13:37)
[2024-07-31] MEDS: ACETAMINOPHEN ES 500 MG TABLET PO ONE (13:39)
[2024-07-31 13:52] VITALS: BP 117/70; TEMP 98.5; O2SAT 97
[2024-07-31] MEDS ORDERED: ACET-73 PO (13:52)
[2024-07-31] MEDS ORDERED: IBUP-2314 PO (13:52)
== END 2024-07-31 14:07 | disposition home or self-care (01) ==
LOC: ER 12:50
DX: S20.211A Contusion of right front wall of thorax, initial encounter (principal); S09.90XA Unspecified injury of head, initial encounter; F17.200 Nicotine dependence, unspecified, uncomplicated; F41.9 Anxiety disorder, unspecified; Z79.899 Other long term (current) drug therapy; Z88.8 Allergy status to other drugs, medicaments and biological substances; Z91.041 Radiographic dye allergy status; Z60.2 Problems related to living alone; W01.0XXA Fall on same level from slipping, tripping and stumbling without subsequent striking against object, initial encounter; Y93.89 Activity, other specified; Y92.89 Other specified places as the place of occurrence of the external cause; Y99.8 Other external cause status
CPT/HCPCS: 99284; 70450; 71100; J7030

== ENCOUNTER 2024-10-30 12:32 | Inpatient (IN) | payer BC ==
[~2024-10-30] VITALS: Ht 162.6 cm; Wt 68.1 kg
[~2024-10-30 12:32] MED LIST changes: +ACET-73 PO; +IBUP-2314 PO
[2024-10-30] MEDS: KETOROLAC TROMETHAMINE 15 MG/ML VIAL IV ONE (14:19)
[2024-10-30 14:22] LABS: BASOPHILS % (AUTO) 0.5 % (0.0-2.0); EOSINOPHILS # (AUTO) 0.1 K/uL (0.0-0.7); HEMATOCRIT 39 % (33-45); HEMOGLOBIN 13.1 g/dL (11.5-14.8); LYMPHOCYTES % (AUTO) 24.1 % (20.0-44.0); MEAN CORPUSCULAR HEMOGLOBIN 28 PG (26.0-33.0); MEAN CORPUSCULAR HGB CONC 33 g/dl (31.0-36.0); MEAN CORPUSCULAR VOLUME 83 fL (82-100); MONOCYTES # (AUTO) 0.5 K/uL (0.1-1.30); MONOCYTES % (AUTO) 5.8 % (2.0-12.0); NEUTROPHILS # (AUTO) 5.7 K/uL (1.8-8.9); NEUTROPHILS % (AUTO) 68.6 % (43.0-81.0); PLATELET COUNT (AUTO) 254 K/uL (150-450); RED BLOOD CELL COUNT(AUTO) 4.72 MIL/uL (4.0-5.2); RED CELL DISTRIBUTION WIDTH 15.2 % (11.5-15.0); WHITE BLOOD COUNT (AUTO) 8.4 K/uL (4.3-11.0)
[2024-10-30 14:30] LABS: CALCIUM, SERUM 8.7 mg/dL (8.5-10.1); CREATININE 0.8 mg/dL (0.6-1.3); POTASSIUM 2.9 mmol/L (3.5-5.1)
[2024-10-30 14:35] LABS: ALBUMIN 3.6 g/dL (3.4-5.0); BILIRUBIN,TOTAL 0.4 mg/dL (0.2-1.0); TOTAL PROTEIN, SERUM 7.5 g/dL (6.4-8.2)
[2024-10-30] MEDS ORDERED: MORPHINE SULFATE INJ 4 MG/ML DISP.SYRIN ONE (16:32)
[2024-10-30] MEDS: MORPHINE SULFATE INJ 2 MG/ML DISP.SYRIN IV ONE (16:37)
[2024-10-30 20:00] VITALS: BP 135/77; TEMP 98.4; O2SAT 99
[2024-10-30] MEDS ORDERED: MORPHINE SULFATE INJ 4 MG/ML DISP.SYRIN IV PRN (20:30)
[2024-10-30] MEDS ORDERED: MAG HYDROX/AL HYDROX/SIMETH 30 ML UDC PO PRN (20:30)
[2024-10-30] MEDS ORDERED: ONDANSETRON HCL/PF 4 MG/2 ML VIAL IVP PRN (20:30)
[2024-10-30] MEDS ORDERED: MAGNESIUM HYDROXIDE 30 ML UDC PO PRN (20:30)
[2024-10-30] MEDS: TRAZODONE 50 MG TABLET PO SCH (22:44)
[2024-10-30] MEDS: POTASSIUM CL. PREMIX PERIPHER. 50 ML IV SCH (22:44)
[2024-10-30] MEDS: POTASSIUM CHLORIDE 20 MEQ TAB.PRT.SR PO ONE (22:44)
[2024-10-30] MEDS: MORPHINE SULFATE INJ 2 MG/ML DISP.SYRIN IV PRN (23:46)
[2024-10-31 07:10] LABS: BASOPHILS # (AUTO) 0.1 K/uL (0.0-0.2); BASOPHILS % (AUTO) 0.8 % (0.0-2.0); EOSINOPHILS # (AUTO) 0.2 K/uL (0.0-0.7); EOSINOPHILS % (AUTO) 3.1 % (0.0-6.0); HEMATOCRIT 38 % (33-45); HEMOGLOBIN 12.5 g/dL (11.5-14.8); LYMPHOCYTES # (AUTO) 2.4 K/uL (0.8-4.8); LYMPHOCYTES % (AUTO) 34.9 % (20.0-44.0); MEAN CORPUSCULAR HEMOGLOBIN 28 PG (26.0-33.0); MEAN CORPUSCULAR HGB CONC 33 g/dl (31.0-36.0); MEAN CORPUSCULAR VOLUME 83 fL (82-100); MONOCYTES # (AUTO) 0.7 K/uL (0.1-1.30); MONOCYTES % (AUTO) 9.9 % (2.0-12.0); NEUTROPHILS # (AUTO) 3.6 K/uL (1.8-8.9); NEUTROPHILS % (AUTO) 51.3 % (43.0-81.0); PLATELET COUNT (AUTO) 240 K/uL (150-450); RED CELL DISTRIBUTION WIDTH 15.1 % (11.5-15.0)
[2024-10-31 07:25] LABS: CALCIUM, SERUM 8.4 mg/dL (8.5-10.1); CREATININE 0.8 mg/dL (0.6-1.3); MAGNESIUM 1.9 mg/dL (1.8-2.4); PHOSPHORUS 2.6 mg/dL (2.5-4.9); POTASSIUM 3.6 mmol/L (3.5-5.1)
[2024-10-31 08:00] VITALS: BP 126/72; TEMP 98.1; O2SAT 100
[2024-10-31] MEDS: PANTOPRAZOLE 40 MG TABLET.DR PO SCH (09:35)
[2024-10-31] MEDS: PREGABALIN 25 MG CAPSULE PO SCH (09:35)
[2024-10-31] MEDS: ACETAMINOPHEN 325 MG TABLET PO PRN (13:38)
[2024-10-31 16:14] VITALS: BP 121/69; TEMP 99; O2SAT 98
[2024-10-31 20:00] VITALS: BP 141/75; TEMP 97.9; O2SAT 98
[2024-11-01 07:16] LABS: BASOPHILS % (AUTO) 0.4 % (0.0-2.0); EOSINOPHILS # (AUTO) 0.3 K/uL (0.0-0.7); EOSINOPHILS % (AUTO) 3.2 % (0.0-6.0); HEMATOCRIT 41 % (33-45); HEMOGLOBIN 13.7 g/dL (11.5-14.8); LYMPHOCYTES # (AUTO) 2.3 K/uL (0.8-4.8); LYMPHOCYTES % (AUTO) 29.1 % (20.0-44.0); MEAN CORPUSCULAR HEMOGLOBIN 28 PG (26.0-33.0); MEAN CORPUSCULAR HGB CONC 33 g/dl (31.0-36.0); MEAN CORPUSCULAR VOLUME 84 fL (82-100); MONOCYTES # (AUTO) 0.7 K/uL (0.1-1.30); MONOCYTES % (AUTO) 8.4 % (2.0-12.0); NEUTROPHILS # (AUTO) 4.8 K/uL (1.8-8.9); NEUTROPHILS % (AUTO) 58.9 % (43.0-81.0); PLATELET COUNT (AUTO) 264 K/uL (150-450); RED BLOOD CELL COUNT(AUTO) 4.92 MIL/uL (4.0-5.2); RED CELL DISTRIBUTION WIDTH 15.4 % (11.5-15.0); WHITE BLOOD COUNT (AUTO) 8.1 K/uL (4.3-11.0)
[2024-11-01 07:30] VITALS: BP 129/72; TEMP 98.2; O2SAT 99
[2024-11-01 07:48] LABS: CALCIUM, SERUM 8.5 mg/dL (8.5-10.1); CREATININE 0.7 mg/dL (0.6-1.3); MAGNESIUM 2.1 mg/dL (1.8-2.4); PHOSPHORUS 3.7 mg/dL (2.5-4.9); POTASSIUM 3.9 mmol/L (3.5-5.1)
[2024-11-01] MEDS ORDERED: PREG50CA PO (12:28)
[2024-11-01] MEDS ORDERED: HYDR-3972 PO (12:28)
== END 2024-11-01 18:00 | disposition home health service (06) | DRG 552 ==
LOC: ER 12:47 → MED 19:36
PROVIDERS: ATTEND Nurse Practitioner Family
DX: M50.323 Other cervical disc degeneration at C6-C7 level (principal); G83.4 Cauda equina syndrome; F33.1 Major depressive disorder, recurrent, moderate; M48.54XA Collapsed vertebra, not elsewhere classified, thoracic region, initial encounter for fracture; M48.02 Spinal stenosis, cervical region; M79.621 Pain in right upper arm; M79.622 Pain in left upper arm; E87.6 Hypokalemia; W01.0XXA Fall on same level from slipping, tripping and stumbling without subsequent striking against object, initial encounter; F41.9 Anxiety disorder, unspecified; G89.29 Other chronic pain; Z91.81 History of falling; M54.9 Dorsalgia, unspecified; G62.9 Polyneuropathy, unspecified
CPT/HCPCS: 36415; 72125-TC; 72128-TC; 80048-TC; 80053-TC; 83735-TC; 84100-TC; 85025-TC; 97112-TC; 97116-TC; 97530-TC; A4223; G0378; J1885; J2270; J3480; J7050

== ENCOUNTER 2024-12-01 03:35 | Emergency (ER) | payer BC ==
[~2024-12-01] VITALS: Ht 154.9 cm; Wt 67.1 kg
[~2024-12-01 03:35] MED LIST changes: -ACET-73 PO; -AMOX-430 PO; -AZIT250T13 PO; -CYCL10TA9 PO; -DIPH-1062 PO; -DOCU250C14 PO; -ERGO500093 PO; -ESCI10TA PO; -GABA-532 PO; +HYDR-3972 PO; -HYDR-3980 PO; -IBUP-2314 PO; -METH-647 PO; -NAPR-1009 PO; -POLY17PO4 PO; +PREG50CA PO; -SENN-261 PO; -SUMA50TA17 PO; -ZOLP10TA2 PO
[2024-12-01] MEDS ORDERED: MORPHINE SULFATE INJ 4 MG/ML DISP.SYRIN ONE ×2 (04:15→06:46)
[2024-12-01] MEDS ORDERED: ONDANSETRON HCL/PF 4 MG/2 ML VIAL ONE (04:16)
[2024-12-01] MEDS: IV NS 0.9% 1,000 ML BAG IV ONE (04:17)
[2024-12-01] MEDS: MORPHINE SULFATE INJ 2 MG/ML DISP.SYRIN IV ONE ×2 (04:24→06:49)
[2024-12-01] MEDS: ONDANSETRON HCL/PF 4 MG/2 ML VIAL IVP ONE (04:24)
[2024-12-01 04:30] LABS: PLATELET COUNT (AUTO) 266 K/uL (150-450); RED BLOOD CELL COUNT(AUTO) 5.18 MIL/uL (4.0-5.2); RED CELL DISTRIBUTION WIDTH 14.7 % (11.5-15.0); WHITE BLOOD COUNT (AUTO) 9.8 K/uL (4.3-11.0)
[2024-12-01 04:45] LABS: ASPARTATE AMINOTRANSFERASE 23.0 U/L (15-37); CREATININE 0.9 mg/dL (0.6-1.3); SODIUM SERUM 144.0 mmol/L (136-145); TOTAL PROTEIN, SERUM 8.1 g/dL (6.4-8.2); UREA NITROGEN, BLOOD 12.0 mg/dL (7-18)
[2024-12-01 04:48] LABS: INR 0.98 (0.91-1.10)
[2024-12-01 04:49] LABS: CALCIUM, SERUM 8.9 mg/dL (8.5-10.1)
[2024-12-01 05:28] LABS: APPEARANCE,URINE CLEAR (CLEAR); BLOOD, URINE 2+ Ery/uL (NEGATIVE); LEUKOCYTE ESTERASE ,URINE NEGATIVE (NEGATIVE); NITRITE, URINE NEGATIVE (NEGATIVE); UGLUCOSE NEGATIVE (NEGATIVE)
[2024-12-01 05:35] LABS: ADD URINE CULTURE YES; SQUAMOUS EPITHELIAL CELL,UR Moderate /HPF (None Seen)
[2024-12-01 06:27] VITALS: TEMP 98.2
[2024-12-01 09:00] VITALS: BP 123/64; O2SAT 95
== END 2024-12-01 11:46 ==
LOC: ER 03:35
DX: R10.84 Generalized abdominal pain (principal); R11.0 Nausea; R19.7 Diarrhea, unspecified; F17.200 Nicotine dependence, unspecified, uncomplicated; F41.9 Anxiety disorder, unspecified; Z79.899 Other long term (current) drug therapy; Z60.2 Problems related to living alone; Z88.8 Allergy status to other drugs, medicaments and biological substances; Z91.041 Radiographic dye allergy status
CPT/HCPCS: 99285; 74176; 96374; 71045; 96361; 96375; 93005; 96376; 85025; 80048; 87086; 83690; 80076; 81001; 36415; 84484; 85730; J2270 ×2; J2405; J7030